=== PATIENT | male | born 1930 | race Two or more races ===

== ENCOUNTER 2017-02-23 00:21 | Inpatient (IN) | payer MEDICARE, OTHER ==
[~2017-02-23] VITALS: Ht 182.9 cm; Wt 90.7 kg
[~2017-02-23 00:21] MED LIST: CALC-867 PO; CARV6.252 PO; FURO20TA4 PO; GABA300C PO; HYDR-548 PO; LORA10CA PO; OLME40TA3 PO; OXYB5TAB PO; PRIM50TA PO; RANI150T8 PO; TAMS-12 PO; TRAM50TA2 PO
--- NOTE | 2017-02-23 00:25 | NUR ---
[id number] HOME FOR WEAKNESS, FAMILY CALLED 911 WHEN PT APPEARED TO "DROP HANDS & FEET" WHILE IN BED. BG 95 IN FIELD, PT DENIES ANY COMPLAINTS. PT NONVERBAL AT THIS TIME. FAMILY AT BEDSIDE TO TRANSLATE. RR EVEN AND UNLABORED. NO SOB NOTED. NAD NOTED. NO NVD AT THIS TIME. PT NOT DIAPHORETIC. PT GOWNED AND PLACEDON MONITOR WAITING FOR MD GU.
--- NOTE | 2017-02-23 00:30 | NUR ---
DR. JANE AT BEDSIDE FOR EVAL
[2017-02-23] MEDS ORDERED: LIDOCAINE 2% JEL UROJET 10 ML MM ONE (00:45)
[2017-02-23 00:53] LABS: BASOPHILS % (AUTO) 0.4 % (0.0-2.0); EOSINOPHILS # (AUTO) 0.2 /CMM (0.0-0.7); EOSINOPHILS % (AUTO) 2.8 % (0.0-6.0); HEMATOCRIT 32 % (39-51); HEMOGLOBIN 10.6 g/dL (13.5-17.5); LYMPHOCYTES # (AUTO) 1.3 /CMM (0.8-4.8); LYMPHOCYTES % (AUTO) 22.3 % (20.0-44.0); MEAN CORPUSCULAR HEMOGLOBIN 26 PG (26.0-33.0); MEAN CORPUSCULAR HGB CONC 33 g/dl (31.0-36.0); MEAN CORPUSCULAR VOLUME 79 fL (80-96); MONOCYTES # (AUTO) 0.4 /CMM (0.1-1.30); MONOCYTES % (AUTO) 7.7 % (2.0-12.0); NEUTROPHILS # (AUTO) 3.8 /CMM (1.8-8.9); NEUTROPHILS % (AUTO) 66.8 % (43.0-81.0); PLATELET COUNT (AUTO) 143 /CMM (150-450); RED BLOOD CELL COUNT(AUTO) 4.05 MIL/uL (4.5-6.0); WHITE BLOOD COUNT (AUTO) 5.7 K/uL (4.3-11.0)
--- NOTE | 2017-02-23 00:58 | NUR ---
URINE COLLECTED. CALLED LAB FOR PRODUCTION RECORDER.
[2017-02-23 01:02] LABS: CALCIUM, SERUM 8.7 mg/dL (8.5-10.1); CARBON DIOXIDE 28 mmol/L (21-32); CHLORIDE 108 mmol/L (98-107); CREATININE 2.1 mg/dL (0.6-1.3); GLUCOSE 179 mg/dL (74-106); POTASSIUM 4.5 mmol/L (3.5-5.1); SODIUM SERUM 146 mmol/L (136-145); UREA NITROGEN, BLOOD 39 mg/dL (7-18)
[2017-02-23 01:06] LABS: INR 0.95 (0.87-1.13); PROTHROMBIN TIME 10.1 SECS (9.5-12.7)
[2017-02-23 01:08] LABS: ALANINE AMINOTRANSFERASE 21 U/L (12-78); ALBUMIN 3.2 g/dL (3.4-5.0); ALKALINE PHOSPHATASE 134 U/L (46-116); ASPARTATE AMINOTRANSFERASE 9 U/L (15-37); BILIRUBIN,DIRECT 0.1 mg/dL (0.0-0.2); BILIRUBIN,TOTAL 0.4 mg/dL (0.2-1.0); TOTAL PROTEIN, SERUM 6.4 g/dL (6.4-8.2)
[2017-02-23 01:10] LABS: TROPONIN I < 0.017 ng/mL (0.00-0.056)
--- NOTE | 2017-02-23 01:10 | NUR ---
PT TO CT.
[2017-02-23 01:22] LABS: APPEARANCE,URINE CLEAR (CLEAR); BILIRUBIN,URINE NEGATIVE (NEGATIVE); BLOOD, URINE NEGATIVE Ery/uL (NEGATIVE); COLOR,URINE YELLOW (YELLOW); KETONES,URINE NEGATIVE (NEGATIVE); LEUKOCYTE ESTERASE ,URINE NEGATIVE (NEGATIVE); NITRITE, URINE NEGATIVE (NEGATIVE); PROTEIN,URINE NEGATIVE (NEGATIVE); UGLUCOSE NEGATIVE (NEGATIVE); UROBILINOGEN,URINE 0.2 EU/dL (0.2)
--- NOTE | 2017-02-23 01:26 | NUR ---
PT RETURNED FROM CT.
[2017-02-23] MEDS ORDERED: IV SET PRIMARY PUMP SET 1 EA INFUS.SET MC ONE ×2 (02:41→05:24)
[2017-02-23] MEDS ORDERED: LEVOFLOXACIN 750 MG /D5W 150ML 150 ML IV ONE (02:41)
[2017-02-23] MEDS ORDERED: AZTREONAM 1 G in IV NS 0.9% 100 ML IV ONE (03:00)
[2017-02-23] MEDS ORDERED: LEVOFLOXACIN 750 MG /D5W 150ML PIGGYBACK IV ONE (03:00)
--- NOTE | 2017-02-23 03:11 | NUR ---
PT SPEAKING TO IN [facility]. AO TO NAME.
--- NOTE | 2017-02-23 03:11 | NUR ---
REPORT GIVEN TO DESI GIRALDO FOR TELE BED 309
--- NOTE | 2017-02-23 03:28 | NUR ---
PT TRANSFERED PER [employer]S PROTOCOL
[2017-02-23] MEDS ORDERED: IV 1/2NS 1000 ML 1,000 ML IV PRN (03:36)
[2017-02-23 03:40] VITALS: BP 172/66
--- NOTE | 2017-02-23 03:40 | NUR ---
TELE/RIDE ATTENDANT; ADMITTED 86 YEARS OLD MALE PT FROM ER VIA GURNEY ACCOMPANIED BY ER MALE STAFF AND PT 'S . PT WAS C/O WEAKNESS FROM HOME. DX; PNA. FARSI SPEAKING. INFORMATIONS WERE TAKEN FROM THE WITH AN OPERATIONS PROJECT MANAGER, GREEN CHAIN MARKER RN, MANOLO. HL INTACT. SKIN INTACT. DENIES PAIN. ORDERS CARRIED OUT. BED ON LOWER POSITION AND LOCKED FOR SAFETY. UPPER BED SIDE RAILS ARE UP FOR SAFETY. PT INSTRUCTED TO CALL FOR HELP. CALL LIGHT AND URINAL WITHIN REACH.
[2017-02-23] MEDS ORDERED: HYDROCODONE/APAP 5/325MG 1 EACH TABLET PO PRN (04:00)
[2017-02-23] MEDS ORDERED: MAGNESIUM HYDROXIDE 30 ML UDC PO PRN (04:00)
[2017-02-23] MEDS ORDERED: Z GUARD REMEDY 2 OZ OINT TP PRN (04:00)
[2017-02-23] MEDS ORDERED: MAG HYDROX/AL HYDROX/SIMETH 30 ML UDC PO PRN (04:00)
[2017-02-23] MEDS ORDERED: CLONIDINE HCL 0.1 MG TABLET PO PRN (04:00)
[2017-02-23] MEDS ORDERED: CEFTRIAXONE 1 G in IV D5W 50 ML IV SCH (04:00)
[2017-02-23] MEDS ORDERED: ACETAMINOPHEN 325 MG TABLET PO PRN (04:00)
[2017-02-23] MEDS ORDERED: ONDANSETRON HCL/PF 4 MG/2 ML VIAL IVP PRN (04:00)
--- NOTE | 2017-02-23 04:00 | NUR ---
TELE/EDGE DRUMMER; RN WHO IS COVERING ME NOTIFIED TO START IV ANTIBIOTICS.
[2017-02-23] MEDS ORDERED: IV NS 0.9% 250 ML IV ONE (04:24)
[2017-02-23] MEDS ORDERED: IV D5W 50 ML IV ONE (04:29)
[2017-02-23] MEDS ORDERED: CEFTRIAXONE 1 G VIAL ONE (04:29)
[2017-02-23] MEDS ORDERED: SECONDARY IV SET 1 EA INFUS.SET MC ONE (04:30)
[2017-02-23] MEDS ORDERED: AZTREONAM 1 G VIAL ONE (04:59)
[2017-02-23] MEDS ORDERED: IV NS 0.9% 100 ML IV ONE (05:02)
[2017-02-23] MEDS ORDERED: CLONIDINE HCL 0.1 MG TABLET ONE (05:11)
[2017-02-23 05:15] VITALS: BP 161/65
[2017-02-23] MEDS ORDERED: IV 1/2NS 1000 ML 1,000 ML IV ONE (05:24)
[2017-02-23 07:01] VITALS: BP 162/71
--- NOTE | 2017-02-23 07:15 | NUR ---
TELE/SUPERVISOR CONDITIONING YARD; PT WAS ON SB 48. IVF ON PROGRESS. BREATHING NON LABORED. WITH OCC. COUGH. CONTINUE TO MONITOR. WILL ENDORSE TO THE DAY SHIFT NURSE.
--- NOTE | 2017-02-23 07:36 | NUR ---
RN OPENING NOTES RECEIVED PATIENT IN BED, AWAKE, HOB ELEVATED, NO SOB OR DISTRESS NOTED. ON O2 @2LPM VIA NC AND TOLERATED WELL. ON TELE MONITOR SINUS PARISA OF 47. A/O X 3 VERBALLY RESPONSIVE AND ABLE TO MAKE NEEDS KNOWN,FARSI. SPEAKER. IV INTACT AND PATENT. KEPT PATIENT CLEAN AND COMFORTABLE IN BED, CALL LIGHT WITHIN PATIENT REACH, WILL CONTINUE TO MONITOR ACCORDINGLY.
--- NOTE | 2017-02-23 07:43 | NUR ---
TELE/SUBSTATION OPERATOR CONVERSION; PT ON SB 48. IVF ON PROGRESS. DENIES PAIN. SLEPT FAIRLY. BREATHING NON LABORED. WILL ENDORSE TO THE DAY SHIFT NURSE.
[2017-02-23] MEDS: OXYBUTYNIN CHLORIDE ER 5 MG TAB PO SCH (09:36)
[2017-02-23] MEDS: PANTOPRAZOLE 40 MG TABLET.DR PO SCH (09:36)
[2017-02-23] MEDS: TAMSULOSIN 0.4 MG CAP.SR.24H PO SCH ×2 (09:36→16:21)
[2017-02-23] MEDS: CARVEDILOL 6.25 MG TABLET PO SCH ×2 (09:37→16:21)
[2017-02-23] MEDS: CALCIUM CITRATE(CITRACAL) /VITAMIN D 1 TAB TABLET PO SCH (09:37)
[2017-02-23 11:38] LABS: BASOPHILS % (AUTO) 0.7 % (0.0-2.0); EOSINOPHILS # (AUTO) 0.2 /CMM (0.0-0.7); EOSINOPHILS % (AUTO) 3.3 % (0.0-6.0); HEMATOCRIT 32 % (39-51); HEMOGLOBIN 10.6 g/dL (13.5-17.5); MEAN CORPUSCULAR HEMOGLOBIN 27 PG (26.0-33.0); MEAN CORPUSCULAR HGB CONC 34 g/dl (31.0-36.0); MEAN CORPUSCULAR VOLUME 78 fL (80-96); MONOCYTES # (AUTO) 0.4 /CMM (0.1-1.30); MONOCYTES % (AUTO) 8.1 % (2.0-12.0); NEUTROPHILS # (AUTO) 3.5 /CMM (1.8-8.9); NEUTROPHILS % (AUTO) 68.9 % (43.0-81.0); PLATELET COUNT (AUTO) 141 /CMM (150-450); RDW COEFFICIENT OF VARIATION 15.1 (11.5-15.0); RED BLOOD CELL COUNT(AUTO) 4.01 MIL/uL (4.5-6.0); WHITE BLOOD COUNT (AUTO) 5.1 K/uL (4.3-11.0)
[2017-02-23 11:50] LABS: CALCIUM, SERUM 8.5 mg/dL (8.5-10.1); CARBON DIOXIDE 29 mmol/L (21-32); CHLORIDE 108 mmol/L (98-107); CREATININE 1.9 mg/dL (0.6-1.3); GLUCOSE 113 mg/dL (74-106); SODIUM SERUM 145 mmol/L (136-145); UREA NITROGEN, BLOOD 38 mg/dL (7-18)
[2017-02-23 11:56] LABS: ALANINE AMINOTRANSFERASE 21 U/L (12-78); ALBUMIN 2.8 g/dL (3.4-5.0); ALKALINE PHOSPHATASE 134 U/L (46-116); ASPARTATE AMINOTRANSFERASE 9 U/L (15-37); BILIRUBIN,TOTAL 0.4 mg/dL (0.2-1.0); PHOSPHORUS 3.9 mg/dL (2.5-4.9); TOTAL PROTEIN, SERUM 5.8 g/dL (6.4-8.2)
[2017-02-23] MEDS ORDERED: FUROSEMIDE 20 MG/2 ML VIAL IV ONE (12:02)
--- NOTE | 2017-02-23 13:45 | NUR ---
RN NOTES PATIENT IS ASLEEP WITH NO SOB OR DISTRESS NOTED, PATIENT IS LYING IN BED COMFORTABLE WITH AT BEDSIDE.
[2017-02-23 14:08] LABS: THYROID STIMULATING HORMONE 1.882 uIU/mL (0.358-3.74)
[2017-02-23 16:00] VITALS: BP 136/63
[2017-02-23] MEDS: ASPIRIN EC 81 MG TABLET.DR PO SCH (16:21)
--- NOTE | 2017-02-23 18:47 | NUR ---
RN CLOSING NOTES ALL NEEDS PROVIDED, ATTENDED, AND ANTICIPATED. KEPT PATIENT CLEAN AND COMFORTABLE IN BED. CALL LIGHT WITHIN PATIENT REACH, WILL CONTINUE TO MONITOR ACCORDINGLY. ENDORSED TO NEXT SHIFT RN TO CONTINUE CARE
--- NOTE | 2017-02-23 19:28 | NUR ---
tele/tn opening notes patient is alert, oriented x3. farsi speaking but can understand bulgarian. can follow simple commands. call lights within reach. cooperative to care. monitoring for s/s of sob or distress. received endorsement from am rn regarding plan of care. family at bedside informed regarding plan of care and new order per md.bed in lock position. educate the importance of safety and for preventive measures.
[2017-02-23 20:00] VITALS: BP 132/72
[2017-02-23] MEDS ORDERED: ENOXAPARIN SODIUM 40 MG/0.4 ML DISP.SYRIN SQ SCH (21:00)
[2017-02-23] MEDS ORDERED: ENOXAPARIN SODIUM 30 MG/0.3 ML DISP.SYRIN SQ SCH (21:00)
[2017-02-23] MEDS ORDERED: GABAPENTIN 300 MG CAPSULE PO SCH (22:00)
[2017-02-23] MEDS ORDERED: FAMOTIDINE (20 MG) 20 MG TABLET PO SCH (22:00)
[2017-02-24] VITALS: BP 123/74
[2017-02-24 04:00] VITALS: BP 135/71
[2017-02-24] MEDS ORDERED: CEFTRIAXONE 1 G in IV D5W 50 ML IV SCH (06:00)
--- NOTE | 2017-02-24 06:38 | NUR ---
tele/rn closing notes patient in bed, awake, alert x 2. family at bedside.able to cooperate and in good spirit. iv atb administered w/ no s/s of adverse effect. call lights within reach will continue to monitor.
[2017-02-24 06:42] LABS: BASOPHILS % (AUTO) 0.3 % (0.0-2.0); EOSINOPHILS # (AUTO) 0.2 /CMM (0.0-0.7); EOSINOPHILS % (AUTO) 2.4 % (0.0-6.0); HEMATOCRIT 34 % (39-51); HEMOGLOBIN 11.3 g/dL (13.5-17.5); LYMPHOCYTES # (AUTO) 1.1 /CMM (0.8-4.8); LYMPHOCYTES % (AUTO) 17.5 % (20.0-44.0); MEAN CORPUSCULAR HEMOGLOBIN 27 PG (26.0-33.0); MEAN CORPUSCULAR HGB CONC 34 g/dl (31.0-36.0); MEAN CORPUSCULAR VOLUME 80 fL (80-96); MONOCYTES # (AUTO) 0.4 /CMM (0.1-1.30); NEUTROPHILS # (AUTO) 4.7 /CMM (1.8-8.9); NEUTROPHILS % (AUTO) 72.8 % (43.0-81.0); PLATELET COUNT (AUTO) 134 /CMM (150-450); RDW COEFFICIENT OF VARIATION 14.9 (11.5-15.0); RED BLOOD CELL COUNT(AUTO) 4.23 MIL/uL (4.5-6.0); WHITE BLOOD COUNT (AUTO) 6.4 K/uL (4.3-11.0)
[2017-02-24 06:50] LABS: ALANINE AMINOTRANSFERASE 20 U/L (12-78); ALBUMIN 3.1 g/dL (3.4-5.0); ALKALINE PHOSPHATASE 142 U/L (46-116); ASPARTATE AMINOTRANSFERASE 9 U/L (15-37); BILIRUBIN,TOTAL 0.4 mg/dL (0.2-1.0); CALCIUM, SERUM 8.6 mg/dL (8.5-10.1); CARBON DIOXIDE 33 mmol/L (21-32); CHLORIDE 105 mmol/L (98-107); CREATININE 2.1 mg/dL (0.6-1.3); GLUCOSE 116 mg/dL (74-106); LIPASE 79 U/L (73-393); MAGNESIUM 1.8 mg/dL (1.8-2.4); PHOSPHORUS 4.2 mg/dL (2.5-4.9); POTASSIUM 4.4 mmol/L (3.5-5.1); SODIUM SERUM 144 mmol/L (136-145); TOTAL PROTEIN, SERUM 6.2 g/dL (6.4-8.2); UREA NITROGEN, BLOOD 38 mg/dL (7-18)
[2017-02-24 06:52] LABS: TROPONIN I < 0.017 ng/mL (0.00-0.056)
--- NOTE | 2017-02-24 07:28 | NUR ---
OPTICAL LABORATORY TECHNICIAN OPEN NOTES RECEIVED REPORT FROM PHYSICIAN ASSISTANT SURGERY NURSE. PATIENT IS SINUS PARISA 53 ON THE MONITOR. WILL CONTINUE TO MONITOR AND ASSESS PATIENT THROUGHOUT MY SHIFT.
[2017-02-24 08:00] VITALS: BP 151/73
[2017-02-24] MEDS: CALCIUM CITRATE(CITRACAL) /VITAMIN D 1 TAB TABLET PO SCH (08:04)
[2017-02-24] MEDS: TAMSULOSIN 0.4 MG CAP.SR.24H PO SCH (08:04)
[2017-02-24] MEDS: PANTOPRAZOLE 40 MG TABLET.DR PO SCH (08:04)
[2017-02-24] MEDS: ASPIRIN EC 81 MG TABLET.DR PO SCH (08:04)
[2017-02-24] MEDS: OXYBUTYNIN CHLORIDE ER 5 MG TAB PO SCH (08:04)
[2017-02-24 08:06] VITALS: BP 151/73
[2017-02-24] MEDS: CARVEDILOL 6.25 MG TABLET PO SCH (08:06)
[2017-02-24 11:41] LABS: ABG BASE EXCESS 3.5 mmol/L; ABG OXYGEN SATURATION 93.4 % (92.0-98.5); ABG PO2 72.9 mmHg (75.0-100.0); AaDO2 73.6 mmHg; COHb 0.6 % (0.5-1.5); MetHb 0.9 % (0.0-1.5); SITE, ABG Left Radial; VENT MODE, BG 2L NASAL CANNULA
--- NOTE | 2017-02-24 14:15 | NUR ---
CUSTODIAL FOREMAN NOTES PATIENT DISCHARGE ORDERS RECEIVED AND CARRIED OUT. PATIENT UNDERSTOOD DISCHARGE INSTRUCTION AND WAS GIVEN THE OPPORTUNITY TO ASK QUESTIONS USING A DIRECTIONAL BORE OPERATOR. PATIENT IV SITE REMOVED. PATIENT ID BAND REMOVED. ALL PERSONAL BELONGING WITH PATIENT AT TIME OF DISCHARGE. PATIENT WAS TRANSFERRED HOME ACCOMPANIED BY HIS . TAXI VOUCHER WAS GIVEN TO PATIENT. PATIENT WAS ESCORTED TO MAIN LOBBY VIA A WHEELCHAIR AND AN RN.
== END 2017-02-24 13:40 | disposition home or self-care (01) | DRG 291 ==
LOC: ER 00:27 → TELE 02:34 → MED 02-24 09:26
PROVIDERS: ADMIT Internal Medicine; ATTEND Internal Medicine
DX: I13.0 Hypertensive heart and chronic kidney disease with heart failure and stage 1 through stage 4 chronic kidney disease, or unspecified chronic kidney disease (principal); I50.33 Acute on chronic diastolic (congestive) heart failure; G92 Toxic encephalopathy; N17.9 Acute kidney failure, unspecified; N18.4 Chronic kidney disease, stage 4 (severe); J98.11 Atelectasis; T50.2X5A Adverse effect of carbonic-anhydrase inhibitors, benzothiadiazides and other diuretics, initial encounter; E86.0 Dehydration; Z85.6 Personal history of leukemia; D63.8 Anemia in other chronic diseases classified elsewhere; F17.290 Nicotine dependence, other tobacco product, uncomplicated; G25.0 Essential tremor; M19.90 Unspecified osteoarthritis, unspecified site; N40.0 Benign prostatic hyperplasia without lower urinary tract symptoms; Z79.899 Other long term (current) drug therapy; E83.9 Disorder of mineral metabolism, unspecified; M41.9 Scoliosis, unspecified; R07.9 Chest pain, unspecified; R55 Syncope and collapse; Y92.009 Unspecified place in unspecified non-institutional (private) residence as the place of occurrence of the external cause
CPT/HCPCS: 36415; 36600; 70450-TC; 71010-TC; 80048-TC; 80053-TC; 80076-TC; 81000-TC; 82140-TC; 83605-TC; 83690-TC; 83735-TC; 83880; 84100-TC; 84443-TC; 84484-TC; 85025-TC; 85730-TC; 87040-TC; 93307-TC; 97001-TC; A4606; J0696; J1650; J1940; J1956; J3490; J7030; J7050; J7060; Z7610

== ENCOUNTER 2017-08-24 22:17 | Emergency (ER) | payer MEDICARE, OTHER ==
[~2017-08-24] VITALS: Ht 160 cm; Wt 88.0 kg
--- NOTE | 2017-08-24 22:31 | NUR ---
PT BIB SON WITH A C/O ABD PAIN 03/20 X 1 DAY. PT WENT TO BED #6 VIA WC. PT'S SON IS AT THE BEDSIDE TRANSLATING FOR THE PT. PT USES A CANE TO AMBULATE. PT IS ON THE MONITOR AND CONTINUOUS PULSE OX.
--- NOTE | 2017-08-24 22:37 | NUR ---
PT'S O2 SAT IS 93% ON RA. PT PLACED ON 2L O2 VIA NC. NOTIFIED.
--- NOTE | 2017-08-24 22:39 | NUR ---
IV START IN PROGRESS AT THE BEDSIDE. RESIDENTIAL ENERGY AUDITOR IS AT THE BEDSIDE.
[2017-08-24] MEDS ORDERED: ONDANSETRON HCL/PF 4 MG/2 ML VIAL ONE (22:41)
[2017-08-24] MEDS ORDERED: MORPHINE SULFATE INJ 4 MG/ML DISP.SYRIN ONE (22:41)
--- NOTE | 2017-08-24 22:48 | NUR ---
PT IS FARSII SPEAKING.
[2017-08-24 22:57] LABS: BASOPHILS % (AUTO) 0.1 % (0.0-2.0); EOSINOPHILS # (AUTO) 0.1 /CMM (0.0-0.7); EOSINOPHILS % (AUTO) 2.1 % (0.0-6.0); HEMATOCRIT 34 % (39-51); HEMOGLOBIN 11.1 g/dL (13.5-17.5); LYMPHOCYTES # (AUTO) 0.4 /CMM (0.8-4.8); LYMPHOCYTES % (AUTO) 7.3 % (20.0-44.0); MEAN CORPUSCULAR HEMOGLOBIN 26 PG (26.0-33.0); MEAN CORPUSCULAR HGB CONC 33 g/dl (31.0-36.0); MEAN CORPUSCULAR VOLUME 77 fL (80-96); MONOCYTES # (AUTO) 0.3 /CMM (0.1-1.30); MONOCYTES % (AUTO) 5.6 % (2.0-12.0); NEUTROPHILS # (AUTO) 5.2 /CMM (1.8-8.9); NEUTROPHILS % (AUTO) 84.9 % (43.0-81.0); PLATELET COUNT (AUTO) 148 /CMM (150-450); RDW COEFFICIENT OF VARIATION 15.8 (11.5-15.0); RED BLOOD CELL COUNT(AUTO) 4.35 MIL/uL (4.5-6.0); WHITE BLOOD COUNT (AUTO) 6.1 K/uL (4.3-11.0)
--- NOTE | 2017-08-24 22:59 | NUR ---
PT IS GOING TO CT VIA [facility]
[2017-08-24] MEDS ORDERED: MORPHINE SULFATE INJ 2 MG/ML DISP.SYRIN IV ONE (23:00)
[2017-08-24] MEDS ORDERED: ONDANSETRON HCL/PF 4 MG/2 ML VIAL IVP ONE (23:00)
[2017-08-24] MEDS ORDERED: IV NS 0.9% 500 ML BAG IV ONE (23:00)
[2017-08-24 23:09] LABS: CALCIUM, SERUM 8.3 mg/dL (8.5-10.1); CARBON DIOXIDE 28 mmol/L (21-32); CHLORIDE 109 mmol/L (98-107); CREATININE 1.6 mg/dL (0.6-1.3); GLUCOSE 142 mg/dL (74-106); POTASSIUM 4.7 mmol/L (3.5-5.1); SODIUM SERUM 143 mmol/L (136-145); UREA NITROGEN, BLOOD 28 mg/dL (7-18)
[2017-08-24 23:13] LABS: INR 0.94 (0.87-1.13); PROTHROMBIN TIME 9.8 SECS (9.5-12.7)
[2017-08-24 23:15] LABS: ALANINE AMINOTRANSFERASE 19 U/L (12-78); ALBUMIN 3.1 g/dL (3.4-5.0); ALKALINE PHOSPHATASE 107 U/L (46-116); ASPARTATE AMINOTRANSFERASE 10 U/L (15-37); BILIRUBIN,DIRECT 0.1 mg/dL (0.0-0.2); BILIRUBIN,TOTAL 0.4 mg/dL (0.2-1.0); LIPASE 266 U/L (73-393); TOTAL PROTEIN, SERUM 6.1 g/dL (6.4-8.2)
[2017-08-24 23:17] LABS: TROPONIN I < 0.017 ng/mL (0.00-0.056)
[2017-08-24] MEDS ORDERED: DONE10TA44 PO (23:17)
[2017-08-24] MEDS ORDERED: CHOL200026 PO (23:17)
[2017-08-24] MEDS ORDERED: MONT10TA22 PO (23:17)
[2017-08-24] MEDS ORDERED: AMYL1CAP58 PO (23:17)
[2017-08-24] MEDS ORDERED: CLON0.1T PO (23:17)
[2017-08-24] MEDS ORDERED: ALFU10TA10 PO (23:17)
--- NOTE | 2017-08-24 23:33 | NUR ---
PT IS TRYING TO GIVE A URINE SAMPLE. PT HAS A URINAL.
--- NOTE | 2017-08-24 23:48 | NUR ---
URINE SAMPLE OBTAINED AND LAB CALLED FOR P/U.
[2017-08-24 23:59] LABS: APPEARANCE,URINE CLEAR (CLEAR); BILIRUBIN,URINE NEGATIVE (NEGATIVE); BLOOD, URINE NEGATIVE Ery/uL (NEGATIVE); COLOR,URINE YELLOW (YELLOW); KETONES,URINE NEGATIVE (NEGATIVE); LEUKOCYTE ESTERASE ,URINE NEGATIVE (NEGATIVE); NITRITE, URINE NEGATIVE (NEGATIVE); PH,URINE 5.5 (5.0-8.0); PROTEIN,URINE NEGATIVE (NEGATIVE); UGLUCOSE NEGATIVE (NEGATIVE); UROBILINOGEN,URINE 0.2 EU/dL (0.2)
--- NOTE | 2017-08-25 00:35 | NUR ---
IV removed. Catheter intact and site benign. Pressure and 4x4 applied to site. No bleeding noted. Patient discharged to home in stable condition. Written and verbal after care instructions given. Patient verbalizes understanding of instruction. PT WAS D/C'D BY PATRICK. PT'S VSS. PT'S SON TO F/U WITH PMD.
[2017-08-25 00:36] VITALS: BP 129/73
== END 2017-08-25 00:37 | disposition home or self-care (01) ==
LOC: ER 22:20
DX: R10.9 Unspecified abdominal pain (principal); I10 Essential (primary) hypertension
CPT/HCPCS: 36415; 71010; 74176; 80048; 80076; 81001; 83605; 83690; 84484; 85025; 85730; 87040 ×2; 93005; 96374; 96375; 99285; A4606; J2270; J2405; J7040; 81000-TC; Z7610